=== PATIENT | female | born 1980 | race Caucasian/White ===

== ENCOUNTER 2022-05-12 14:36 | Inpatient (IN) | payer MEDICAID ==
[~2022-05-12] VITALS: Ht 162.6 cm; Wt 78.0 kg
[2022-05-12] MEDS ORDERED: CARBOPROST TROMETHAMINE 250 MCG/ML AMPUL IM PRN (15:30)
[2022-05-12] MEDS ORDERED: BUTORPHANOL TARTRATE 2 MG/ML VIAL IV PRN (15:30)
[2022-05-12] MEDS ORDERED: METHYLERGONOVINE MALEATE 0.2 MG/ML IM PRN (15:30)
[2022-05-12] MEDS ORDERED: LIDOCAINE HCL 1% 20ML VIAL (Pyxis) INJ INFIL SCH (15:30)
[2022-05-12] MEDS ORDERED: NALOXONE HCL 0.4 MG/ML 1ML VIAL IM PRN (15:30)
[2022-05-12 16:23] LABS: CLARITY URINE TURBID (CLEAR); COLOR URINE ORANGE (YELLOW); KETONES URINE 2+ (NEGATIVE); LEUKOCYTE ESTERASE URINE 3+ (NEGATIVE); NITRITE URINE NEGATIVE (NEGATIVE); OCCULT BLOOD URINE 3+ (NEGATIVE); PH URINE 6.5 (4.5-8.0); PROTEIN URINE 1+ (NEGATIVE); SPECIFIC GRAVITY URINE 1.015 (1.005-1.030); UROBILINOGEN URINE 0.2 E.U./dL (0.2-1.0)
[2022-05-12 16:24] LABS: BASOPHILS % 0.3 % (0.0-2.0); EOSINOPHILS % 0.2 % (0.0-5.0); HEMATOCRIT. 33.8 % (36.0-48.0); HEMOGLOBIN. 11.2 g/dL (12.0-16.0); MEAN CORPUSCULAR VOLUME 84.3 fL (81.0-99.0); MEAN PLATELET VOLUME 10.5 fl (7.4-10.4); MONOCYTES % 6.7 % (2.0-8.0); NEUTROPHILS % 70.8 % (40.0-76.0); PLATELET 185 x1000/uL (130-400); RED BLOOD CELL COUNT 4.01 mill/uL (4.2-5.4); RED CELL DISTRIBUTION WIDTH 15.9 % (11.6-14.6)
[2022-05-12] MEDS: OXYTOCIN 30 UNITS/500ML NS PMX 500 ML IV SCH (16:27)
[2022-05-12 17:08] LABS: HEPATITIS B SURFACE ANTIGEN NEGATIVE
[2022-05-12 17:14] LABS: *AMPHETAMINES SCREEN URINE NEGATIVE (NEGATIVE); *BARBITURATES SCREEN URINE NEGATIVE (NEGATIVE); *BENZODIAZEPINES SCREEN URINE NEGATIVE (NEGATIVE); *COCAINE SCREEN URINE NEGATIVE (NEGATIVE); CANNABINOID URINE SCREEN NEGATIVE (NEGATIVE); METHADONE URINE SCREEN NEGATIVE (NEGATIVE); OPIATES URINE SCREEN NEGATIVE (NEGATIVE); PHENCYCLIDINE URINE SCREEN NEGATIVE (NEGATIVE)
[2022-05-12] MEDS: LACTATED RINGERS 1,000 ML IV SCH ×2 (21:28→23:16)
[2022-05-12] MEDS ORDERED: ROPIVACAINE HCL/PF EPIDURAL 200 ML EPI SCH (21:30)
[2022-05-12] MEDS ORDERED: ROPIVACAINE HCL/PF EPIDURAL 200 ML EPI ONE (23:06)
[2022-05-13] MEDS: LACTATED RINGERS 1,000 ML IV SCH (05:07)
[2022-05-13] MEDS ORDERED: MINERAL OIL 30ML BOTTLE PO SCH (11:45)
[2022-05-13] MEDS ORDERED: IBUPROFEN 400MG TABLET PO PRN (12:15)
[2022-05-13] MEDS ORDERED: METHYLERGONOVINE MALEATE 0.2 MG/ML IM PRN (12:15)
[2022-05-13] MEDS ORDERED: ACETAMINOPHEN WITH CODEINE 300/30MG TABLET PO PRN (12:15)
[2022-05-13] MEDS ORDERED: IBUPROFEN 800MG TABLET PO PRN (12:15)
[2022-05-13] MEDS ORDERED: OXYTOCIN 30 UNITS/500ML NS PMX 500 ML IV SCH (12:15)
[2022-05-13] MEDS ORDERED: DIPHENHYDRAMINE 25MG CAPSULE PO PRN (12:15)
[2022-05-13] MEDS ORDERED: HEMORRHOIDAL SUPP PR PRN (12:15)
[2022-05-13] MEDS ORDERED: GLYCERIN/WITCH HAZEL LEAF MEDICATED PAD TOP PRN (12:15)
[2022-05-13] MEDS ORDERED: BISACODYL 10MG SUPP PR PRN (12:15)
[2022-05-13] MEDS ORDERED: LANOLIN OINT 7GM TUBE TOP PRN (12:15)
[2022-05-13] MEDS ORDERED: BENZOCAINE/LANOLIN/ALOE VERA SPRAY TOP PRN (12:15)
[2022-05-13] MEDS ORDERED: RHO(D) IMMUNE GLOBULIN 300 MCG/SYR IM PRN (12:15)
[2022-05-13] MEDS ORDERED: NALOXONE HCL 0.4MG/ML VIAL IV PRN (12:45)
[2022-05-13] MEDS: OXYTOCIN 30 UNITS/500ML NS PMX 500 ML IV SCH ×2 (13:10→14:30)
[2022-05-13 16:00] VITALS: BP 124/76
[2022-05-13 20:00] VITALS: BP 107/53
[2022-05-13] MEDS ORDERED: DOCUSATE SODIUM 100MG CAPSULE PO SCH (21:00)
[2022-05-13] MEDS: SIMETHICONE 80MG TABLET CHEW PO SCH (21:59)
[2022-05-14 04:00] VITALS: BP 116/80
[2022-05-14 07:17] LABS: BASOPHILS % 0.2 % (0.0-2.0); EOSINOPHILS % 0.7 % (0.0-5.0); HEMATOCRIT. 28.4 % (36.0-48.0); HEMOGLOBIN. 9.4 g/dL (12.0-16.0); LYMPHOCYTES % 26.1 % (20.0-50.0); MEAN CORPUSCULAR HEMOGLOBIN 28.2 pg (28.0-32.0); MEAN CORPUSCULAR VOLUME 85.3 fL (81.0-99.0); MEAN PLATELET VOLUME 10.3 fl (7.4-10.4); MONOCYTES % 7.9 % (2.0-8.0); NEUTROPHILS % 65.1 % (40.0-76.0); PLATELET 136 x1000/uL (130-400); RED BLOOD CELL COUNT 3.34 mill/uL (4.2-5.4); RED CELL DISTRIBUTION WIDTH 15.9 % (11.6-14.6)
[2022-05-14] MEDS ORDERED: FERROUS SULFATE 325MG TABLET PO SCH (07:30)
[2022-05-14] MEDS ORDERED: PRENATAL VIT/FE FUMARATE/FA TABLET PO SCH (09:00)
[2022-05-14] MEDS: SIMETHICONE 80MG TABLET CHEW PO SCH (09:47)
[2022-05-14 10:00] VITALS: BP 118/75
[2022-05-14 16:00] VITALS: BP 130/72
== END 2022-05-14 17:00 | disposition home or self-care (01) | DRG 560 ==
LOC: OBSVTOIN 14:36 → 8 EST LDRP 14:36 → 8EST 05-13 19:36
PROVIDERS: ADMIT Specialist; ATTEND Specialist
PROC: 10D07Z6 Extraction of Products of Conception, Vacuum, Via Natural or Artificial Opening (ICD-10-PCS; principal; 2022-05-13)
PROC: 3E033VJ Introduction of Other Hormone into Peripheral Vein, Percutaneous Approach (ICD-10-PCS; 2022-05-13)
PROC: 0W8NXZZ Division of Female Perineum, External Approach (ICD-10-PCS; 2022-05-13)
PROC: 3E0R3BZ Introduction of Anesthetic Agent into Spinal Canal, Percutaneous Approach (ICD-10-PCS; 2022-05-13)
PROC: 00HU33Z Insertion of Infusion Device into Spinal Canal, Percutaneous Approach (ICD-10-PCS; 2022-05-13)
DX: O48.0 Post-term pregnancy (principal); Z37.0 Single live birth; O35.19X0 Maternal care for (suspected) chromosomal abnormality in fetus, other chromosomal abnormality, not applicable or unspecified; O69.81X0 Labor and delivery complicated by cord around neck, without compression, not applicable or unspecified; Z20.822 Contact with and (suspected) exposure to COVID-19; O99.02 Anemia complicating childbirth; Z3A.40 40 weeks gestation of pregnancy
CPT/HCPCS: 36415; 80305; 81003; 85025; 86592; 86703; 86762; 86850; 86900; 87340; 87426; 99281; G0378; J2795; J3490; J7120; A4315; J2590